=== PATIENT | female | born 1935 | race Hispanic/Latino ===

== ENCOUNTER 2022-01-03 08:48 | Emergency (ER) | payer MEDICARE ==
[~2022-01-03] VITALS: Ht 157.5 cm; Wt 81.6 kg
[2022-01-03] MEDS ORDERED: NAPR-1196 PO (11:26)
[2022-01-03 11:30] VITALS: BP 118/53
== END 2022-01-03 11:51 | disposition home or self-care (01) ==
LOC: EDH 08:48
DX: S32.029A Unspecified fracture of second lumbar vertebra, initial encounter for closed fracture (principal); M25.561 Pain in right knee; M25.551 Pain in right hip; I10 Essential (primary) hypertension; Z96.651 Presence of right artificial knee joint; Z86.73 Personal history of transient ischemic attack (TIA), and cerebral infarction without residual deficits; W01.198A Fall on same level from slipping, tripping and stumbling with subsequent striking against other object, initial encounter; Y93.89 Activity, other specified; Y92.89 Other specified places as the place of occurrence of the external cause; Y99.8 Other external cause status
CPT/HCPCS: 70450; 72125; 72131; 73502; 73562

== ENCOUNTER 2022-01-09 18:53 | Observation (INO) | payer MEDICARE ==
[~2022-01-09] VITALS: Ht 157.5 cm; Wt 83.2 kg
[~2022-01-09 18:53] MED LIST: NAPR-1196 PO
[2022-01-09 19:21] LABS: BASOPHILS % (AUTO) 0.8 % (0.0-5.0); EOSINOPHILS % (AUTO) 1.1 % (0.0-8.0); HEMATOCRIT 40.1 % (36-48); LYMPHOCYTES % (AUTO) 37.6 % (21.0-51.0); MEAN CORPUSCULAR HEMOGLOBIN 30.2 pg (27.0-33.0); MEAN CORPUSCULAR HGB CONC 32.4 g/dL (32.0-36.0); MONOCYTES % (AUTO) 12.3 % (3.0-13.0); PLATELET COUNT (AUTO) 229 K/uL (130-400); RED BLOOD CELL COUNT(AUTO) 4.31 MIL/uL (4.00-5.50); RED CELL DISTRIBUTION WIDTH 16.2 % (11.0-15.5); WHITE BLOOD COUNT (AUTO) 6.4 K/uL (4.8-10.8)
[2022-01-09 19:30] LABS: CREATININE 0.8 mg/dL (0.5-1.5); POTASSIUM 3.8 mmol/L (3.5-5.1)
[2022-01-09] MEDS ORDERED: ASPIRIN 81MG CHEW TAB PO ONE (19:30)
[2022-01-09 19:40] LABS: TOTAL PROTEIN, SERUM 6.1 g/dL (6.0-8.3)
[2022-01-09] MEDS ORDERED: ENOXAPARIN SODIUM 80 MG/0.8 ML SQ SCH (21:30)
[2022-01-09] MEDS ORDERED: CLOPIDOGREL 75MG TAB PO ONE (21:30)
[2022-01-09] MEDS ORDERED: LACTULOSE 20 GM/30 ML UDCUP PO PRN (22:30)
[2022-01-09] MEDS ORDERED: ONDANSETRON 4MG INJ IV PRN (22:30)
[2022-01-09] MEDS ORDERED: ACETAMINOPHEN 325 MG TAB PO PRN ×2 (22:30)
[2022-01-09 22:41] LABS: INR 2.9 (0.85-1.15); PROTHROMBIN TIME 29.8 SEC (9.6-11.6)
[2022-01-09 22:46] LABS: CHOLESTEROL 138 mg/dL (<200); CREATINE KINASE, TOTAL 70 U/L (21-232); HDL CHOLESTEROL 52 mg/dL (35-85); HEMOGLOBIN A1C 5.9 % (4.0-6.0); LDL DIRECT 72 mg/dL (0-99); TRIGLYCERIDES 93 mg/dL (30-200)
[2022-01-10 01:20] VITALS: BP 148/70
[2022-01-10 03:52] VITALS: BP 128/70
[2022-01-10] MEDS: INSULIN HUMULIN R 100 UNIT/ML 3ML SQ SCH ×2 (05:39→11:30)
[2022-01-10 07:20] VITALS: BP 150/61
[2022-01-10] MEDS ORDERED: ATORVASTATIN 20 MG TABLET PO SCH (09:00)
[2022-01-10] MEDS ORDERED: METOPROLOL TARTRATE 25 MG TAB PO SCH (09:00)
[2022-01-10] MEDS ORDERED: ENOXAPARIN SODIUM 40 MG/0.4 ML SYRINGE SQ SCH (09:00)
[2022-01-10] MEDS ORDERED: FAMOTIDINE 20MG TAB PO SCH (09:00)
[2022-01-10] MEDS ORDERED: ASPIRIN 81 MG EC TAB PO SCH (09:00)
[2022-01-10] MEDS ORDERED: DICL20GE TP (10:15)
[2022-01-10] MEDS ORDERED: GABA-533 PO (10:15)
[2022-01-10] MEDS ORDERED: SPIR25TA6 PO (10:15)
[2022-01-10] MEDS ORDERED: FURO20TA4 PO (10:15)
[2022-01-10] MEDS ORDERED: ATOR40TA69 PO (10:15)
[2022-01-10] MEDS ORDERED: AEC81 PO (10:15)
[2022-01-10] MEDS ORDERED: METO25 PO (10:15)
[2022-01-10] MEDS ORDERED: FUROSEMIDE 20 MG TABLET PO SCH (10:30)
[2022-01-10] MEDS ORDERED: FUROSEMIDE 20 MG TABLET PO ONE (10:30)
[2022-01-10] MEDS ORDERED: GABAPENTIN 100 MG CAPSULE PO SCH ×2 (10:30)
[2022-01-10] MEDS ORDERED: SPIRONOLACTONE 25 MG TAB PO SCH ×2 (10:30)
[2022-01-10 11:20] VITALS: BP 125/66
[2022-01-10] MEDS ORDERED: ATORVASTATIN 40 MG TABLET PO SCH (21:00)
[2022-01-10] MEDS ORDERED: GABAPENTIN 300 MG CAPSULE PO SCH (21:00)
[2022-01-11] MEDS ORDERED: LEVOTHYROXINE 125 MCG TABLET PO SCH (06:30)
== END 2022-01-10 16:55 | disposition home or self-care (01) ==
LOC: EDH 18:53 → INTOOBSV 22:12 → EDHIP 22:12 → 4AH 01-10 01:29
PROVIDERS: ADMIT Internal Medicine; ATTEND Internal Medicine
DX: I21.4 Non-ST elevation (NSTEMI) myocardial infarction (principal); R07.89 Other chest pain; I25.10 Atherosclerotic heart disease of native coronary artery without angina pectoris; I24.9 Acute ischemic heart disease, unspecified; I10 Essential (primary) hypertension; E11.9 Type 2 diabetes mellitus without complications; E66.9 Obesity, unspecified; E78.5 Hyperlipidemia, unspecified; I44.4 Left anterior fascicular block; M94.0 Chondrocostal junction syndrome [Tietze]; E78.00 Pure hypercholesterolemia, unspecified; Z86.73 Personal history of transient ischemic attack (TIA), and cerebral infarction without residual deficits; Z95.0 Presence of cardiac pacemaker; Z96.641 Presence of right artificial hip joint; Z96.659 Presence of unspecified artificial knee joint; Z98.891 History of uterine scar from previous surgery; Z79.899 Other long term (current) drug therapy; Z98.890 Other specified postprocedural states; Z68.33 Body mass index [BMI] 33.0-33.9, adult
CPT/HCPCS: 96372 ×2; 83036; 82550; 84484 ×4; 80061; 80053; 83880; 85025; 85610; 36415; 71045; 99291; 93005 ×3; 82948 ×2; J1650 ×2; G0378 ×4